=== PATIENT | male | born 1970 | race Hispanic/Latino ===

== ENCOUNTER 2019-08-27 07:40 | Emergency (ER) | payer BC ==
[2019-08-27 08:51] LABS: RAPID GROUP A STREP NEGATIVE (NEGATIVE)
== END 2019-08-27 10:20 | disposition home or self-care (01) ==
LOC: EDH 07:40
DX: J09.X2 Influenza due to identified novel influenza A virus with other respiratory manifestations (principal); M79.10 Myalgia, unspecified site
CPT/HCPCS: 87804; 87880